=== PATIENT | male | born 1990 | race Caucasian/White ===

== ENCOUNTER 2017-02-12 13:12 | Emergency (ER) | payer OTHER ==
[2017-02-12 13:28] VITALS: RESP 18
[2017-02-12] MEDS ORDERED: LORazepam 1 MG TAB PO ONE (13:47)
[2017-02-12] MEDS ORDERED: KETOROLAC 30 MG/1 ML SDV IM ONE (13:47)
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
[2017-02-12 15:02] VITALS: BP 140/82; PULSE 83; TEMP 99.1; O2SAT 95
== END 2017-02-12 15:07 | disposition home or self-care (01) ==
DX: S16.1XXA Strain of muscle, fascia and tendon at neck level, initial encounter (principal); Z87.891 Personal history of nicotine dependence; V49.40XA Driver injured in collision with unspecified motor vehicles in traffic accident, initial encounter; Y92.410 Unspecified street and highway as the place of occurrence of the external cause; Y99.8 Other external cause status; Y93.89 Activity, other specified
CPT/HCPCS: J1885